=== PATIENT | female | born 1960 | race Caucasian/White ===

== ENCOUNTER 2016-11-28 09:51 | Emergency (ER) | payer OTHER ==
[2016-11-28 10:42] VITALS: BP 161/97
--- NOTE | 2016-11-28 12:05 | UC ---
Ear Complaint HPI - HPI Summary HPI Summary: R ear feels plugged, trouble hearing with pain behind ear and down R neck. Has some nasal congestion, and hx of having fluid in that ear before. Also concerned that she feels tender and swollen on entire side of R neck behind and below R ear for almost 3 weeks. Denies fever. - History of Current Complaint Chief Complaint: UCEar Stated Complaint: RIGHT EAR,SINUSES Time Seen by Provider: 11/28/16 11:48 Hx Obtained From: Patient Hx Last Menstrual Period: NOVASURE ?: No Onset/Duration: Gradual Onset, Lasting Weeks Severity Initially: Mild Severity Currently: Mild Aggravating Factors: Nothing Alleviating Factors: Nothing Associated Signs/Symptoms: Positive: Hearing Loss, URI Symptoms - Allergies/Home Medications Allergies/Adverse Reactions: Allergies Allergy/AdvReac Type Severity Reaction Status Date / Time Penicillins Allergy Intermediate rash, hives Verified 11/28/16 10:42 Pseudoephedrine Allergy Unknown Unknown Verified 11/28/16 10:42 [From Sudafed] Reaction Details bees Allergy Anxiety Uncoded 11/28/16 10:42 Home Medications: Home Medications Calcium Carbonate-Vitamin D [Calcium + D3 600-200 mg-Unit] 1 tab PO DAILY [History Confirmed 11/28/16] Loratadine & Pseudoephedrine [Alavert Allergy/Sinus 5-120 mg] 1 tab PO BID 11/28 [History Confirmed 11/28/16] PMH/Surg Hx/FS Hx/Imm Hx Endocrine History Of: Reports: Thyroid Disease Denies: Diabetes Cardiovascular History Of: Reports: Hypertension Denies: Cardiac Disorders Respiratory History Of: Denies: COPD, Asthma GI/ History Of: Denies: Ulcer - Surgical History Surgical History: Yes Surgery Procedure, Year, and Place: Craneotomy at ,Right eye tumor at ,Tubal ligation,Right ankle surgery with hardware, D&C and Novasure - Family History Known Family History: Positive: None - Social History Alcohol Use: None Substance Use Type: None Smoking Status (MU): Never Smoked Tobacco - Immunization History Most Recent Influenza Vaccination: 06/2015 Review of Systems Constitutional: Negative Skin: Negative Eyes: Negative ENT: Ear Ache, Nasal Discharge Respiratory: Negative Cardiovascular: Negative Gastrointestinal: Negative Genitourinary: Negative Motor: Negative Neurovascular: Negative Musculoskeletal: Negative Neurological: Negative Psychological: Negative All Other Systems Reviewed And Are Negative: Yes Physical Exam Triage Information Reviewed: Yes Appearance: Well-Appearing, No Pain Distress, Well-Nourished Vital Signs: Initial Vital Signs Temp 97.6 F 11/28/16 10:40 Pulse 58 11/28/16 10:40 Resp 16 11/28/16 10:40 BP 161/97 11/28/16 10:40 Pulse Ox 100 11/28/16 10:40 Vital Signs Reviewed: Yes Eye Exam: Normal Eyes: Positive: Conjunctiva Clear ENT: Positive: Pharynx normal, Nasal congestion, TMs normal. Negative: Nasal drainage, TM bulging, TM dull, TM red, Tonsillar swelling, Tonsillar exudate, Trismus Dental Exam: Other - edentulous Neck: Positive: No Lymphadenopathy - no palpable nodes or glands, though pt states they all feel tender and swollen to her, Tenderness @ - R neck Respiratory Exam: Normal Respiratory: Positive: Chest non-tender, Lungs clear, Normal breath sounds, No respiratory distress, No accessory muscle use Cardiovascular Exam: Normal Cardiovascular: Positive: RRR, No Murmur Musculoskeletal Exam: Normal Neurological Exam: Normal Psychological Exam: Normal Skin Exam: Normal Ear Complaint Course/Dx - Differential Dx/Diagnosis Provider Diagnoses: R eustachian tube dysfunction. R cervical lymphadenopathy Discharge - Discharge Plan Condition: Stable Disposition: HOME Prescriptions: Fluticasone NASAL SPRAY 50MCG* [Flonase NASAL SPRAY 50MCG*] 2 spray BOTH NARES DAILY #1 btl Patient Education Materials: Eustachian Tube Dysfunction (GEN), Lymphadenopathy (ED) Referrals: Merced Brown PA [Primary Care Provider] - Mj Munoz MD [Medical Doctor] - Additional Instructions: As we discussed, fluid in the ears can often take weeks to resolve. You can discuss your recurrent problems with an ear, nose, throat specialist to see if surgery is an option. Make sure you tell the law office receptionist that you would prefer to see someone in [place].
== END 2016-11-28 12:04 | disposition home or self-care (01) ==
LOC: UCCORT 09:51
DX: H69.91 Unspecified Eustachian tube disorder, right ear (principal); R09.81 Nasal congestion; R59.1 Generalized enlarged lymph nodes; H91.8X9 Other specified hearing loss, unspecified ear; E07.9 Disorder of thyroid, unspecified; Z88.2 Allergy status to sulfonamides; Z88.8 Allergy status to other drugs, medicaments and biological substances; Z91.030 Bee allergy status
CPT/HCPCS: 99212; G0463

== ENCOUNTER 2018-04-13 19:00 | Emergency (ER) | payer OTHER ==
[2018-04-13 19:57] VITALS: BP 150/91
[2018-04-13] MEDS ORDERED: Cephalexin CAP* 500 MG PO ONE ×2 (20:32→20:38)
--- NOTE | 2018-04-13 20:34 | UC ---
Skin Complaint HPI - HPI Summary HPI Summary: NOTICED AN AREA OF REDNESS RIGHT POSTERIOR THIGH THIS MORNING. OVER THE COURSE OF THE DAY IT HAS BECOME BIGGER, MORE PAINFUL AND ITCHY. NO DRAINAGE. NO FEVER , HEADACHE OR BODY ACHES. - History of Current Complaint Chief Complaint: UCSkin Time Seen by Provider: 04/13/18 20:25 Stated Complaint: SKIN COMPLAINT Hx Obtained From: Patient Hx Last Menstrual Period: NOVASURE Onset/Duration: Gradual Onset, Lasting Hours, Still Present Timing: Constant Onset Severity: Mild Current Severity: Moderate Pain Intensity: 10 - SITTING IN ROOM IN NAD Pain Scale Used: 0-10 Numeric Location: Discrete - POSTERIOR RIGHT THIGH Character: Pruritus, Pain, Redness, Raised Aggravating Factor(s): Touch Alleviating Factor(s): Nothing Associated Signs & Symptoms: Positive: Rash, Tenderness Related History: Insect Bite/Sting - Allergy/Home Medications Allergies/Adverse Reactions: Allergies Allergy/AdvReac Type Severity Reaction Status Date / Time bee venom protein (honey bee) Allergy Unknown Anxiety Verified 04/13/18 19:47 Penicillins Allergy Unknown rash,hives Verified 04/13/18 19:47 pseudoephedrine Allergy Unknown Unknown Verified 04/13/18 19:47 [From [facility]] Reaction Details Home Medications: Home Medications Bethanechol TAB* [Urecholine TAB*] 10 mg PO BID 04/13/18 [History Confirmed 12/27] Review of Systems Constitutional: Negative Skin: Rash Respiratory: Negative Cardiovascular: Negative Gastrointestinal: Negative All Other Systems Reviewed And Are Negative: Yes PMH/Surg Hx/FS Hx/Imm Hx Endocrine History: Hypothyroidism, Dyslipidemia Cardiovascular History: Hypertension - Surgical History Surgical History: Yes Surgery Procedure, Year, and Place: Craneotomy at ,Right eye tumor at ,Tubal ligation,Right ankle surgery with hardware, D&C and Novasure. hysterectomy - Family History Known Family History: Positive: Hypertension - Social History Alcohol Use: None Substance Use Type: None Smoking Status (MU): Never Smoked Tobacco - Immunization History Most Recent Influenza Vaccination: 06/2015 Physical Exam Triage Information Reviewed: Yes Appearance: Well-Appearing, No Pain Distress, Well-Nourished Vital Signs: Initial Vital Signs Temp 97.9 F 04/13/18 19:49 Pulse 55 04/13/18 19:49 Resp 18 04/13/18 19:49 BP 150/91 04/13/18 19:49 Pulse Ox 100 04/13/18 19:49 Vital Signs Reviewed: Yes Eyes: Positive: Conjunctiva Clear ENT: Positive: Hearing grossly normal Neck: Positive: Supple Respiratory: Positive: No respiratory distress, No accessory muscle use Cardiovascular: Positive: Pulses Normal Abdomen Description: Positive: Soft Musculoskeletal: Positive: No Edema Neurological: Positive: Alert Psychological: Positive: Age Appropriate Behavior Skin: Positive: Other - 15CM X 12 CM AREA OF SOFT TISSUE SWELLING AND ERYTHEMA POSTERIOR RIGHT THIGH. WARM TO TOUCH AND TTP. NO FLUCTUANCE OR DRAINAGE Course/Dx - Diagnoses Provider Diagnoses: CELLULITIS RIGHT POSTERIOR THIGH Discharge - Sign-Out/Discharge Documenting (check all that apply): Discharge/Admit/Transfer - Discharge Plan Condition: Stable Disposition: HOME Prescriptions: Cephalexin CAP* [Keflex 500 CAP*] 1,000 mg PO BID #26 cap Loratadine 10 mg PO DAILY #30 tablet Triamcinolone 0.1% CREAM(NF) [Kenalog Cream 0.1%(NF)] 1 applic TOPICAL TID PRN # 1 tube PRN Reason: Itching Patient Education Materials: Cellulitis (ED) Referrals: Merced Brown PA [Primary Care Provider] - If Needed Additional Instructions: TAKE THE ANTIBIOTICS FOR THE FULL 7 DAYS TO COVER FOR INFECTION. THERE MAY BE AN ALLERGIC COMPONENT TO YOUR REACTION WELL. TAKE 10 MG OF LORATADINE DAILY IN THE MORNING. COOL COMPRESSES MAY HELP WITH THE ITCHING. TRIAMCINOLONE TOPICALLY MAY ALSO HELP WITH THE ITCH. SEEK FOLLOW-UP IF YOU'RE NOT IMPROVING EXPECTED OVER THE NEXT FEW DAYS. - Billing Disposition and Condition Condition: STABLE Disposition: Home
== END 2018-04-13 20:51 | disposition home or self-care (01) ==
LOC: UCCORT 19:00
DX: L03.115 Cellulitis of right lower limb (principal); Z88.0 Allergy status to penicillin; Z88.8 Allergy status to other drugs, medicaments and biological substances; I10 Essential (primary) hypertension
CPT/HCPCS: 99212; A9270-GY; G0463

== ENCOUNTER 2018-12-07 19:00 | Emergency (ER) | payer OTHER ==
[2018-12-07 21:06] VITALS: BP 159/104
[2018-12-07] MEDS ORDERED: Cephalexin CAP* 500 MG PO ONE (21:29)
[2018-12-07] MEDS ORDERED: predniSONE TAB* 20 MG PO ONE (21:30)
--- NOTE | 2018-12-07 21:30 | UC ---
UC General HPI - HPI Summary HPI Summary: awoke with rash on R arm. describes it as itchy and painful. applied a topical steroid cream with no relief. no fever or sob. uncertain if it is a bite or infection. - History of Current Complaint Chief Complaint: UCRash Stated Complaint: RIGHT ARM SKIN COMPLAINT Time Seen by Provider: 12/07/18 21:24 Hx Obtained From: Patient Hx Last Menstrual Period: NOVASURE Timing: Constant Pain Intensity: 8 Associated Signs & Symptoms: Negative: Fever - Allergy/Home Medications Allergies/Adverse Reactions: Allergies Allergy/AdvReac Type Severity Reaction Status Date / Time bee venom protein (honey bee) Allergy Unknown Anxiety Verified 12/07/18 20:59 Penicillins Allergy Unknown rash,hives Verified 12/07/18 20:59 pseudoephedrine Allergy Unknown Unknown Verified 12/07/18 20:59 [From [facility]] Reaction Details Home Medications: Home Medications Atenolol TAB* [Tenormin TAB* 50 MG] 100 mg PO DAILY 12/07/18 [History Confirmed 12/07/18] Betamethasone Dip 0.05% ON(NF) [Betamethasone Dipr 0.05% OINT(NF)] 1 applic .SEE ORDER ONCE PRN 12/07/18 [History Confirmed 12/07/18] Epi-Pen 1 dose IM SEE INSTRUCTIONS PRN 12/07/18 [History Confirmed 12/07/18] Folic Acid TAB* [Folvite TAB*] 1 mg PO DAILY 12/07/18 [History Confirmed ] PMH/Surg Hx/FS Hx/Imm Hx Endocrine History: Dyslipidemia Cardiovascular History: Hypertension - Surgical History Surgical History: Yes Surgery Procedure, Year, and Place: Craneotomy at ,Right eye tumor at ,Tubal ligation,Right ankle surgery with hardware, D&C and Novasure. hysterectomy - Family History Known Family History: Positive: Hypertension - Social History Alcohol Use: None Substance Use Type: None Smoking Status (MU): Never Smoked Tobacco - Immunization History Most Recent Influenza Vaccination: 06/2015 Review of Systems All Other Systems Reviewed And Are Negative: Yes Constitutional: Positive: Negative Skin: Positive: Rash Eyes: Positive: Negative ENT: Positive: Negative Respiratory: Positive: Negative Cardiovascular: Positive: Negative Gastrointestinal: Positive: Negative Genitourinary: Positive: Negative Motor: Positive: Negative Neurovascular: Positive: Negative Musculoskeletal: Positive: Negative Neurological: Positive: Negative Psychological: Positive: Negative Physical Exam Triage Information Reviewed: Yes Appearance: Well-Appearing Vital Signs: Initial Vital Signs Temp 98.4 F 12/07/18 20:59 Pulse 59 12/07/18 20:59 Resp 20 12/07/18 20:59 BP 159/104 12/07/18 20:59 Pulse Ox 100 12/07/18 20:59 Vital Signs Reviewed: Yes Eyes: Positive: Conjunctiva Clear ENT: Positive: Normal ENT inspection Neck: Positive: Supple, Nontender, No Lymphadenopathy Respiratory: Positive: Lungs clear, Normal breath sounds Cardiovascular: Positive: RRR Abdomen Description: Positive: Nontender Bowel Sounds: Positive: Present Musculoskeletal: Positive: ROM Intact Neurological: Positive: Alert Psychological: Positive: Age Appropriate Behavior Skin Exam: Normal, Other - 2 slightly raised red spots on R Forearm that are warm and tender to touch. no streaking and not fluctuant. about 2-3" in size. no overt bite or sting yepez. Course/Dx - Differential Dx - Multi-Symptom Differential Diagnoses: Other - cellulitis vs urticaria vs bite/sting. will tx with antibiotic, steroid and close f/u for recheck. - Diagnoses Provider Diagnosis: Rash Discharge - Sign-Out/Discharge Documenting (check all that apply): Patient Departure All imaging exams completed and their final reports reviewed: No Studies - Discharge Plan Condition: Stable Disposition: HOME Prescriptions: Cephalexin CAP* [Keflex CAP*] 500 mg PO TID 10 Days #30 cap predniSONE [Prednisone 20 MG TAB] 40 mg PO DAILY 2 Days #4 tablet Patient Education Materials: Urticaria (ED), Cellulitis (DC) Referrals: Merced Brown PA [Primary Care Provider] - 2 Days - Billing Disposition and Condition Condition: STABLE Disposition: Home - Attestation Statements Provider Attestation: Per institutional requirements, I have reviewed the chart, however, I was not consulted specifically or made aware of this patient by the midlevel provider. I did not personally evaluate, interact with , or disposition this patient.
== END 2018-12-07 21:39 | disposition home or self-care (01) ==
LOC: UCCORT 19:00
DX: R21 Rash and other nonspecific skin eruption (principal); I10 Essential (primary) hypertension; Z91.030 Bee allergy status; Z88.0 Allergy status to penicillin; Z88.8 Allergy status to other drugs, medicaments and biological substances
CPT/HCPCS: 99212; A9270-GY; G0463; J7512

== ENCOUNTER 2019-04-13 20:11 | Emergency (ER) | payer OTHER ==
[2019-04-13 20:26] VITALS: BP 139/88
--- NOTE | 2019-04-13 20:51 | UC ---
UC General HPI - HPI Summary HPI Summary: 1. SINUS PAIN, PRESSURE AND CONGESTION X 2 WEEKS. TAKING OTC MEDICATION WITH NO RELIEF. HX SINUSITIS AND THIS IS THE SAME. 2. FOR THE PAST 2 WEEKS, PT DESCRIBES EPISODES OF "FOOD GETS CAUGHT SOMETIMES WHEN I EAT". "I FEEL THE LUMP THEN VOMIT THEN EVERYTHING IS OK AFTER". DENIES HAVING ANY CURRENT S/S'S. ABLE TO SWALLOW SALIVA WITH NO DIFFICULTY. 3. C/O A SCIATICA FLARE ON R. DESCRIBES PAIN IN R BUTT INTO R THIGH. SOME RELIEF WITH ICY HOT. TAKE MOTRIN ON OCCASION. HAS SEEN PT FOR SAME IN PAST. NO BACK OR ABDOMINAL PAIN. NO FEVER. NO BOWEL/BLADDER DYSFUNCTION AND NO SADDLE ANESTHESIA. - History of Current Complaint Chief Complaint: UCGeneralIllness Stated Complaint: SINUS Time Seen by Provider: 04/13/19 20:38 Hx Obtained From: Patient Hx Last Menstrual Period: NOVASURE Pain Intensity: 8 Associated Signs & Symptoms: Negative: Abdominal Pain, Chest Pain, Fever, SOB - Allergy/Home Medications Allergies/Adverse Reactions: Allergies Allergy/AdvReac Type Severity Reaction Status Date / Time bee venom protein (honey bee) Allergy Unknown Anxiety Verified 04/13/19 20:20 Penicillins Allergy Unknown rash,hives Verified 04/13/19 20:20 pseudoephedrine Allergy Unknown Unknown Verified 04/13/19 20:20 [facility] Reaction Details PMH/Surg Hx/FS Hx/Imm Hx Endocrine History: Thyroid Disease, Dyslipidemia Cardiovascular History: Hypertension - Surgical History Surgical History: Yes Surgery Procedure, Year, and Place: Craneotomy at ,Right eye tumor at ,Tubal ligation,Right ankle surgery with hardware, D&C and Novasure. hysterectomy - Family History Known Family History: Positive: Hypertension - Social History Alcohol Use: None Substance Use Type: None Smoking Status (MU): Never Smoked Tobacco - Immunization History Most Recent Influenza Vaccination: 06/2015 Review of Systems All Other Systems Reviewed And Are Negative: Yes Constitutional: Negative: Fever, Chills Skin: Negative: Rash ENT: Positive: Nasal Discharge, Sinus Congestion, Sinus Pain/Tenderness. Negative: Sore Throat, Ear Ache Respiratory: Negative: Shortness Of Breath, Cough Cardiovascular: Negative: Palpitations, Chest Pain Gastrointestinal: Positive: Vomiting. Negative: Abdominal Pain, Diarrhea Musculoskeletal: Negative: Decreased ROM Neurological: Negative: Weakness Physical Exam Triage Information Reviewed: Yes Appearance: Well-Appearing Vital Signs: Initial Vital Signs Temp 97.1 F 04/13/19 20:21 Pulse 72 04/13/19 20:21 Resp 16 04/13/19 20:21 BP 139/88 04/13/19 20:21 Pulse Ox 100 04/13/19 20:21 Vital Signs Reviewed: Yes Eyes: Positive: Conjunctiva Clear ENT: Positive: Pharynx normal, Nasal congestion, TMs normal, Sinus tenderness, Other - SPEECH IS FLUENT AND PT SWALLOWING HER SALIVA WITH NO DIFFICULTY. NO STRIDOR.. Negative: Nasal drainage Neck: Positive: Supple, Nontender, No Lymphadenopathy Respiratory: Positive: Lungs clear, Normal breath sounds, No respiratory distress Cardiovascular: Positive: RRR, No Murmur Abdomen Description: Positive: Nontender, No Organomegaly, Soft. Negative: Distended, Guarding, Hernia @, Pulsatile Mass Bowel Sounds: Positive: Present Musculoskeletal: Positive: Other: - BACK: NO DEFORMITY OR TENDERNESS. TENDER IN R SCIATIC NOTCH. NO SADDLE ANESTHESIA. S/V/M INTACTX4. Neurological: Positive: Alert Psychological: Positive: Age Appropriate Behavior Skin Exam: Normal Skin: Negative: Rashes Course/Dx - Differential Dx - Multi-Symptom Differential Diagnoses: Other - 1. WILL TX SINUSITIS WITH ANTIBIOTIC. 2. WILL TX SCIATICA WITH pt 3. DYSPAGIA: WILL TX SOFT DIET/LIQUID DIET, AVOID NSAIDS FOR NOW, F/U PCP NEXT WEEK SCHEDULED AND GO TO ER FOR ANY RECURRENT BOUTS OF FOOD BEING CAUGHT. - Diagnoses Provider Diagnosis: Sinusitis, Esophageal dysphagia, Sciatica Discharge - Sign-Out/Discharge Documenting (check all that apply): Patient Departure All imaging exams completed and their final reports reviewed: No Studies - Discharge Plan Condition: Stable Disposition: HOME Prescriptions: DOXYcycline CAP(*) [DOXYcycline 100MG CAP(*)] 100 mg PO BID 7 Days #14 cap Patient Education Materials: Sinusitis (ED), Sciatica (ED), Dysphagia (ED) Referrals: Merced Brown PA [Primary Care Provider] - Additional Instructions: 1. EAT A SOFT FOOD OR LIQUID DIET. AVOID MEATS AND LARGE PIECES OF FOOD. IF THE FOOD GETS STUCK, GO TO THE ER IMMEDIATELY. AVOID MOTRIN UNTIL YOUR STOMACH ISSUE IS RESOLVED. 2. FOLLOW UP WITH PT FOR THE SCIATICA. 3. AVOID THE SUN WHILE TAKING DOXYCYCLINE. 4. FOLLOW UP WITH YOUR PRIMARY CARE NEXT WEEK SCHEDULED. - Billing Disposition and Condition Condition: STABLE Disposition: Home
[2019-04-13] MEDS ORDERED: DOXYcycline CAP(*) 100 MG PO ONE ×2 (20:59→21:08)
== END 2019-04-13 21:17 | disposition home or self-care (01) ==
LOC: UCCORT 20:11
DX: J32.9 Chronic sinusitis, unspecified (principal); R13.10 Dysphagia, unspecified; M54.30 Sciatica, unspecified side; I10 Essential (primary) hypertension
CPT/HCPCS: 99213; A9270-GY; G0463

== ENCOUNTER 2019-04-29 17:50 | Emergency (ER) | payer OTHER ==
[2019-04-29 18:19] VITALS: BP 129/89
--- NOTE | 2019-04-29 19:02 | UC ---
Eye Complaint HPI - History of Current Complaint Chief Complaint: UCGU Stated Complaint: URINARY Time Seen by Provider: 04/29/19 18:25 Hx Last Menstrual Period: NOVASURE Pain Intensity: 6 - Allergies/Home Medications Allergies/Adverse Reactions: Allergies Allergy/AdvReac Type Severity Reaction Status Date / Time bee venom protein (honey bee) Allergy Unknown Anxiety Verified 04/29/19 18:19 Penicillins Allergy Unknown rash,hives Verified 04/29/19 18:19 pseudoephedrine Allergy Unknown Unknown Verified 04/29/19 18:19 [From Sudafed] Reaction Details Home Medications: Home Medications Bethanechol TAB* [Urecholine TAB*] 10 mg PO BID 04/29/19 [History Confirmed ] Calcium Carbonate/Vitamin D3 [Calcium 1,000 + D3 Caplet] 1 each PO DAILY [History Confirmed 04/29/19] PMH/Surg Hx/FS Hx/Imm Hx - Surgical History Surgical History: Yes Surgery Procedure, Year, and Place: Craneotomy at ,Right eye tumor at ,Tubal ligation,Right ankle surgery with hardware, D&C and Novasure. hysterectomy - Family History Known Family History: Positive: Hypertension - Social History Alcohol Use: None Substance Use Type: None Smoking Status (MU): Never Smoked Tobacco - Immunization History Most Recent Influenza Vaccination: 06/2015 Physical Exam Vital Signs: Initial Vital Signs Temp 97.6 F 04/29/19 18:17 Pulse 99 04/29/19 18:17 Resp 16 04/29/19 18:17 BP 129/89 04/29/19 18:17 Pulse Ox 98 04/29/19 18:17 Discharge - Discharge Plan Referrals: Merced Brown PA [Primary Care Provider] -
--- NOTE | 2019-04-29 19:26 | UC ---
Complaint Female HPI - HPI Summary HPI Summary: Pt presents with c/o urinary symptoms of urgency, frequency, and dysuria X 2 days. Pt aso c/o low back and pelvis discomfort and brown/yellow discharge - History Of Current Complaint Chief Complaint: UCGU Stated Complaint: URINARY Time Seen by Provider: 04/29/19 18:25 Hx Obtained From: Patient Hx Last Menstrual Period: NOVASURE ?: No Onset/Duration: Sudden Onset, Lasting Days, Still Present Timing: Constant Severity Initially: Mild Severity Currently: Moderate Pain Intensity: 6 Character: Dull, Burning Aggravating Factor(s): Urination Alleviating Factor(s): Nothing Associated Signs And Symptoms: Positive: Vaginal Discharge - Risk Factors Ectopic Risk Factor: Negative Ovarian Torsion Risk Factor: Negative - Allergies/Home Medications Allergies/Adverse Reactions: Allergies Allergy/AdvReac Type Severity Reaction Status Date / Time bee venom protein (honey bee) Allergy Unknown Anxiety Verified 04/29/19 18:19 Penicillins Allergy Unknown rash,hives Verified 04/29/19 18:19 pseudoephedrine Allergy Unknown Unknown Verified 04/29/19 18:19 [From Sudafed] Reaction Details Home Medications: Home Medications Bethanechol TAB* [Urecholine TAB*] 10 mg PO BID 04/29/19 [History Confirmed ] Calcium Carbonate/Vitamin D3 [Calcium 1,000 + D3 Caplet] 1 each PO DAILY [History Confirmed 04/29/19] PMH/Surg Hx/FS Hx/Imm Hx Previously Healthy: Yes Cardiovascular History: Cardiac Disease, Hypertension - Surgical History Surgical History: Yes Surgery Procedure, Year, and Place: Craneotomy at ,Right eye tumor at ,Tubal ligation,Right ankle surgery with hardware, D&C and Novasure. hysterectomy - Family History Known Family History: Positive: Hypertension - Social History Occupation: Disabled Lives: With Family Alcohol Use: None Substance Use Type: None Smoking Status (MU): Never Smoked Tobacco Have You Smoked in the Last Year: No - Immunization History Most Recent Influenza Vaccination: 06/2015 Review of Systems All Other Systems Reviewed And Are Negative: Yes Constitutional: Positive: Negative Skin: Positive: Negative Eyes: Positive: Negative ENT: Positive: Negative Respiratory: Positive: Negative Cardiovascular: Positive: Negative Gastrointestinal: Positive: Abdominal Pain, Diarrhea - had one episode at clinic Genitourinary: Positive: Dysuria, Frequency, Urgency Motor: Positive: Negative Neurovascular: Positive: Negative Musculoskeletal: Positive: Negative Neurological: Positive: Negative Psychological: Positive: Negative Is Patient Immunocompromised?: No Physical Exam Triage Information Reviewed: Yes Appearance: Well-Appearing Vital Signs: Initial Vital Signs Temp 97.6 F 04/29/19 18:17 Pulse 99 04/29/19 18:17 Resp 16 04/29/19 18:17 BP 129/89 04/29/19 18:17 Pulse Ox 98 04/29/19 18:17 Vital Signs Reviewed: Yes Eye Exam: Normal ENT Exam: Normal Dental Exam: Normal Neck exam: Normal Respiratory Exam: Normal Respiratory: Positive: Normal breath sounds Cardiovascular Exam: Normal Abdomen Description: Positive: Nontender Musculoskeletal Exam: Normal Neurological Exam: Normal Psychological Exam: Normal Skin Exam: Normal Complaint Female Dx - Course Course Of Treatment: Pt was unable to provide urine sample. I also discussed with her that I was treating her based on her symptoms of frequency, urgency and dysuria. I discussed with her the need to follow up immediately with her PCP and brick cleaner provider as soon as possible. - Differential Dx/Diagnosis Differential Diagnosis/HQI/PQRI: Urinary Tract Infection Provider Diagnosis: Dysuria Discharge - Sign-Out/Discharge Documenting (check all that apply): Patient Departure All imaging exams completed and their final reports reviewed: No Studies - Discharge Plan Condition: Stable Disposition: HOME Prescriptions: Nitrofurantoin Monohyd/M-Cryst [Macrobid 100 mg Capsule] 100 mg PO Q12H #10 cap Patient Education Materials: Dysuria (ED) Referrals: Gus Giraldo MD [Medical Doctor] - As Soon As Possible Merced Brown PA [Primary Care Provider] - As Soon As Possible Additional Instructions: Please follow up with your PCP and [facility]VE REPAIRER providers as soon as possible. - Billing Disposition and Condition Condition: STABLE Disposition: Home
== END 2019-04-29 19:35 | disposition home or self-care (01) ==
LOC: UCCORT 17:50
DX: R30.0 Dysuria (principal); Z88.0 Allergy status to penicillin; I11.9 Hypertensive heart disease without heart failure
CPT/HCPCS: 99212; G0463

== ENCOUNTER 2019-05-05 08:41 | Emergency (ER) | payer OTHER ==
--- OUTSIDE RECORDS SUMMARY | 2019-05-05 08:55 | XMS REPORT | Continuity of Care Document ---
:1960 External Reference #:[id number] Author Name Oneal Zhang Care Team Providers Name Role Phone Merced Brown RPA Primary Care Physician Unavailable Payers Date Identification Numbers Payment Provider Subscriber Effective: 2008 Policy Number: [id number] Salty Mcfadden Group Number: [id number] Group Name: [place] [address] PayID: [id number] Problems Active Problems Provider Date Hypothyroidism Merced Milano, PA Onset: 01/06/2019 Hyperlipidemia Merced Milano, PA Onset: 01/06/2019 Essential hypertension Merced Milano, PA Onset: 01/06/2019 Degenerative joint disease involving multiple Merced Milano, PA Onset: joints Trochanteric bursitis Merced Milano, PA Onset: 01/09/2019 Note: chronic (R) side Intermittent asthma Merced Milano, PA Onset: 01/09/2019 Dermatitis factitia Merced Milano, PA Onset: 01/09/2019 Allergic rhinitis Merced Milano, PA Onset: 01/09/2019 Bladder muscle dysfunction - overactive Merced Milano, PA Onset: 2018 Chronic recurrent sinusitis Merced Milano, PA Onset: 03/11/2019 Dysfunction of eustachian tube Merced Milano, PA Onset: 03/11/2019 Note: chronic, right Family History Date Family Member(s) Observation Comments Father Heart Disease,High Cholesterol,Hypertension Mother due to Heart condition Social History Type Date Description Comments Sex Unknown Lives With Male Partner Marcus Diet Patient is on a cholesterol diet Occupation Disabled ETOH Use Denies alcohol use Tobacco Use Start: Unknown Patient has never smoked Smoking Status Reviewed: 05/03/19 Patient has never smoked Allergies, Adverse Reactions, Alerts Description No Known Drug Allergies Medications Active Medications SIG Qnty Indications Ordering Date Provider Trospium Chloride 1 tab by mouth 30tabs Mj 05/03/2019 20mg every day as Elizabeth, Tablets needed Methylprednisolone take as directed 21units M70.61 Mj 05/03/2019 4mg TBPK MD Glenn Nitrofurantoin Monohyd 1 tab by mouth 10caps Unknown 04/29/2019 Macro twice a day 100mg Capsules Flector 1 patch to 5units Mj 04/19/2019 1.3% Patches affected site Elizabeth, every 12 hours prn pain Folic Acid 1 by mouth every 01/26/2019 1mg Tablets day MD Glenn Ventolin HFA 1-2 inhalations 18gm 01/26/2019 108(90Base) every 4 hour as Elizabeth, mcg/Act Aerosol needed wheeze, cough Atenolol 2 tabs by mouth 60tabs 01/26/2019 50mg Tablets every day MD Glenn Calcium 600+D 1 tab by mouth 180tabs 01/26/2019 [id number] twice a day Elizabeth, Tablets Alavert Allergy/Sinus 1 every 12 hours 24tabs 01/24/2019 5-120mg as needed Elizabeth, Tablets ER 12HR Levothyroxine Sodium ! tab by mouth 90tabs E03.9 01/24/2019 50mcg every day Elizabeth, Tablets MD Stiles Or equivalent, 50ml J32.9 01/24/2019 0.65% Solution for rinsing nares Elizabeth, prn Ipratropium [place] Two Sprays 30units J32.9 01/24/2019 0.03% In Each Nostril Elizabeth, Solution Every 12 Hours Imodium A-D 1-2 tabs by mouth 30caps 01/21/2019 2mg Capsules four times a day Elizabeth, as needed loose stool Spironolactone 1 by mouth every 90tabs Mj 01/17/2019 25mg Tablets day MD Glenn Atorvastatin Calcium 1 tab by mouth 90tabs Mj 40mg every day Glenn, Tablets Bethanechol Chloride take 1 tablets by Gus Giraldo, 10mg mouth bid Tablets History Medications Prednisone 2 tabs by mouth 10tabs Mj Elizabeth 04/22/2019 - 20mg every day For 5 MD 05/03/2019 Tablets Days For Acute Back Pain QC Lidocaine Pain 1 patch to 10units Mj Elizabeth 04/22/2019 - Relief affected area 05/03/2019 4% Patches every 12 hours as needed for back pain Calcium 500 +D 1 by mouth 180tabs Mj Elizabeth 01/24/2019 - twice a day 01/26/2019 [id number] Tablets Prednisone 1 by mouth 5tabs J32.9 Mj Elizabeth 01/24/2019 - 20mg every day 01/30/2019 Tablets Spironolactone/[place] 1 po qd 30tabs Unknown - chlorothiazide 01/17/2019 25-25mg Tablets Trospium Chloride po bid 60tabs Unknown - 05/03/2019 20mg Tablets Atenolol 1 po qd 90tabs Unknown - 100mg 01/26/2019 Tablets Levothyroxine Sodium 1 tab by mouth 90tabs Mj Elizabeth - Mon - Fri 04/22/2019 75mcg Tablets Vitamin D 1 po qd 30caps Unknown - 100Units 01/26/2019 Capsules Levetiracetam 1 po bid 60tabs Unknown - 500mg 01/03/2019 Tablets Vital Signs Date Vital Result Comment 05/03/2019 11:19am Height 64 inches 5'4" Weight 137.12 lb Heart Rate 62 /min BP Systolic Sitting 134 mmHg BP Diastolic Sitting 78 mmHg O2 % BldC Oximetry 98 % BMI (Body Mass Index) 23.5 kg/m2 01/24/2019 9:08am Height 64 inches 5'4" Weight 131.00 lb Heart Rate 62 /min BP Systolic Sitting 134 mmHg BP Diastolic Sitting 78 mmHg O2 % BldC Oximetry 98 % BMI (Body Mass Index) 22.5 kg/m2 07/20/2013 12:52pm Height 64 inches 5'4" Results Test Date Facility Test Result H/L Range Note Laboratory test 04/22/2019 [facility] TSH 0.02 mcIU/mL Low 0.34-5.[address] ([place] [address] Stim Horm) [phone] Free T4 (Free Thyroxine) 1.18 ng/dL High 0.61-1.12 Procedures Date Code Description Status 03/02/2019 [id number] Mammogram Completed 02/16/2018 [id number] Mammogram Completed Encounters Type Date Location Provider Dx Diagnosis Office Visit 01/24/2019 [facility] Merced Brown, J32.9 Chronic sinusitis, 10:00a NIRAJ unspecified I10 Essential (primary) hypertension E03.9 Hypothyroidism, unspecified Office Visit 07/20/2013 1:00p Orthopedic Antonina Cabrera, 719.41 [facility] AT [place] 715.11 Osteoarthrosis Localized Prim Shoulder Region 726.10 Bursae & Tendon Disorders Shoulder Region Unspec Plan of Treatment Future Appointment(s):08/03/2019 9:30 am - NIRAJ Zafar at [facility]05/03/2019 - Merced Brown PAM70.61 Trochanteric bursitis, right hipNew Medication:Methylprednisolone 4 mg - take as directedComments:Chronic issue, but now may involve the iliotibial bandHas PT gxbuyV13.31 Right lower quadrant painNew Labs:Urinalysis Profile, Ordered: 05/03/19Urine Culture And Sensitivities, Ordered: 05/03/19Comments:Likely due to diarrhea but need urine dbrrwrJ02.7 Diarrhea, unspecifiedComments:BRAT dietR30.0 DysuriaComments:Need a urine sample, order given
[2019-05-05 08:58] VITALS: BP 119/96
--- NOTE | 2019-05-05 09:25 | UC ---
Lower Extremity/Ankle HPI - HPI Summary HPI Summary: 59 year old female with right ankle complaint. Had previous ORIF in the ankle years ago and felt more discomfort for the past 3 days. No trauma. No falls. No weakness. Pain is better with rest and worsened if pushing on the scar where the surgery took place . - History of Current Complaint Chief Complaint: UCLowerExtremity Stated Complaint: RIGHT ANKLE CONCERN Time Seen by Provider: 05/05/19 09:06 Hx Obtained From: Patient Hx Last Menstrual Period: NOVASURE Onset/Duration: Gradual Onset Severity Initially: Moderate Severity Currently: Moderate Pain Intensity: 8 Aggravating Factor(s): Standing, Ambulation Alleviating Factor(s): Rest, Elevation Able to Bear Weight: Yes - Allergies/Home Medications Allergies/Adverse Reactions: Allergies Allergy/AdvReac Type Severity Reaction Status Date / Time bee venom protein (honey bee) Allergy Unknown Anxiety Verified 05/05/19 08:59 Penicillins Allergy Unknown rash,hives Verified 05/05/19 08:59 pseudoephedrine Allergy Unknown Unknown Verified 05/05/19 08:59 [facility] Reaction Details Home Medications: Home Medications Albuterol HFA INHALER* [Ventolin HFA Inhaler*] 1 puff INH Q4H PRN 05/05/19 [ History Confirmed 05/05/19] Atorvastatin* [Lipitor 40 MG*] 1 tab PO DAILY 05/05/19 [History Confirmed ] Calcium Carb/Vitamin D3/Vit K1 [Calcium + D Soft Chewable Tab] 1 tab PO DAILY [History Confirmed 05/05/19] Folic Acid 1 tab PO DAILY 05/05/19 [History Confirmed 05/05/19] Spironolactone TAB* [Aldactone TAB 25 MG*] 1 tab PO DAILY 05/05/19 [History Confirmed 05/05/19] Trospium (NF) [Sanctura (NF)] 1 tab PO DAILY PRN 05/05/19 [History Confirmed ] methylPREDNISolone [Medrol] 5 tab PO ONCE 05/05/19 [History Confirmed 05/05/19] PMH/Surg Hx/FS Hx/Imm Hx Previously Healthy: Yes Endocrine History: Thyroid Disease, Dyslipidemia Cardiovascular History: Hypertension - Surgical History Surgical History: Yes Surgery Procedure, Year, and Place: Craneotomy at ,Right eye tumor at ,Tubal ligation,Right ankle surgery with hardware, D&C and Novasure. hysterectomy - Family History Known Family History: Positive: Hypertension - Social History Alcohol Use: None Substance Use Type: None Smoking Status (MU): Never Smoked Tobacco Have You Smoked in the Last Year: No - Immunization History Most Recent Influenza Vaccination: 06/2015 Review of Systems All Other Systems Reviewed And Are Negative: Yes Musculoskeletal: Positive: Arthralgia, Decreased ROM Is Patient Immunocompromised?: No Physical Exam Triage Information Reviewed: Yes Appearance: Well-Appearing, No Pain Distress, Well-Nourished Vital Signs: Initial Vital Signs Temp 97.9 F 05/05/19 08:54 Pulse 76 05/05/19 08:54 Resp 16 05/05/19 08:54 BP 119/96 05/05/19 08:54 Pulse Ox 100 05/05/19 08:54 Vital Signs Reviewed: Yes Eye Exam: Normal ENT Exam: Normal Respiratory Exam: Normal Cardiovascular Exam: Normal Musculoskeletal Exam: Normal Neurological Exam: Normal Psychological Exam: Normal Skin Exam: Normal Images Feet (Multiple View): 1 - medial lammeolus tenderness to palpation. 2 - well healed scar and in most prominent tenderness to palpation but no break in skin, no erythema, no bruising or swelling. sensation intact with brisk peripheral pulses Lower Extremity Course/Dx - Course Course Of Treatment: Xray shows no acute concerns. Refer back to Ortho for follow up . SHELBIE applied. Go to ED if Sx worsened - Differential Dx/Diagnosis Differential Diagnosis/HQI/PQRI: Contusion, Fracture (Closed), Sprain, Strain Provider Diagnosis: Right ankle pain Discharge - Sign-Out/Discharge Documenting (check all that apply): Patient Departure All imaging exams completed and their final reports reviewed: Yes - Discharge Plan Condition: Good Disposition: HOME Patient Education Materials: Arthralgia (ED) Referrals: Pietro Velarde MD [Medical Doctor] - If Needed (Ortho referral ) Merced Brown PA [Primary Care Provider] - Additional Instructions: Your xray did not reveal any cocnerns . please follow up with Orthopedics - Billing Disposition and Condition Condition: GOOD Disposition: Home
== END 2019-05-05 10:08 | disposition home or self-care (01) ==
LOC: UCCORT 08:41
DX: M25.571 Pain in right ankle and joints of right foot (principal); E07.9 Disorder of thyroid, unspecified; E78.5 Hyperlipidemia, unspecified; I10 Essential (primary) hypertension; Z88.0 Allergy status to penicillin
CPT/HCPCS: 99213; G0463

== ENCOUNTER 2019-05-14 09:35 | Emergency (ER) | payer OTHER ==
[2019-05-14 09:58] VITALS: BP 115/79
--- NOTE | 2019-05-14 10:15 | UC ---
Skin Complaint HPI - HPI Summary HPI Summary: 59-year-old female presents with one-week history of red itchy rash to her left forearm for the past week. States she has been using [id number] topical anti-itch gel without relief. States itching is worse at night. Denies swelling of lips, tongue, throat, difficulty breathing, changes in diet, detergents, soaps, lotions, cosmetics, or known contact with environmental irritants. - History of Current Complaint Chief Complaint: UCRash Time Seen by Provider: 05/14/19 09:53 Stated Complaint: SKIN COMPLAINT Hx Obtained From: Patient Hx Last Menstrual Period: NOVASURE Pain Intensity: 0 - Allergy/Home Medications Allergies/Adverse Reactions: Allergies Allergy/AdvReac Type Severity Reaction Status Date / Time bee venom protein (honey bee) Allergy Unknown Anxiety Verified 05/05/19 08:59 Penicillins Allergy Unknown rash,hives Verified 05/05/19 08:59 pseudoephedrine Allergy Unknown Unknown Verified 05/05/19 08:59 [From Sudafed] Reaction Details diphenhydramine AdvReac Tachycardia Verified 05/14/19 09:58 [From Benadryl Allergy] PMH/Surg Hx/FS Hx/Imm Hx Endocrine History: Dyslipidemia Cardiovascular History: Hypertension Respiratory History: Asthma - Surgical History Surgical History: Yes Surgery Procedure, Year, and Place: Craneotomy at ,Right eye tumor at ,Tubal ligation,Right ankle surgery with hardware, D&C and Novasure. hysterectomy - Family History Known Family History: Positive: Hypertension - Social History Occupation: Disabled Lives: With Family Alcohol Use: None Substance Use Type: None Smoking Status (MU): Never Smoked Tobacco Have You Smoked in the Last Year: No - Immunization History Most Recent Influenza Vaccination: 06/2015 Review of Systems All Other Systems Reviewed And Are Negative: Yes Constitutional: Negative: Fever, Chills Skin: Positive: Rash Respiratory: Positive: Negative Cardiovascular: Positive: Negative Gastrointestinal: Positive: Negative Genitourinary: Positive: Negative Musculoskeletal: Positive: Negative Neurological: Positive: Negative Is Patient Immunocompromised?: No Physical Exam - Summary Physical Exam Summary: GENERAL APPEARANCE: Well developed, well nourished, alert and cooperative, and appears to be in no acute distress. MOUTH/THROAT: no swelling of lips or tongue. Pharynx normal No tonsilar inflammation, swelling, exudate, or lesions. Uvula midline. Airway patent. NECK: Neck supple, non-tender without lymphadenopathy. CARDIAC: Normal S1 and S2. No S3, S4 or murmurs. Rhythm is regular. There is no peripheral edema, cyanosis or pallor. Extremities are warm and well perfused. Capillary refill is less than 2 seconds. Peripheral pulses intact. LUNGS: Clear to auscultation without rales, rhonchi, wheezing or diminished breath sounds. ABDOMEN: Positive bowel sounds. Soft, nondistended, nontender. No guarding or rebound. No masses or hepatosplenomegally. MUSKULOSKELETAL: ROM intact to all extremities. No joint erythema or tenderness. Normal muscular development. Normal gait. SKIN: Patchy, erythematous maculopapular rash to the left anterior and posterior forearm from wrist to elbow. Skin exam otherwise unremarkable. Triage Information Reviewed: Yes Vital Signs: Initial Vital Signs Temp 98.6 F 05/14/19 09:53 Pulse 68 05/14/19 09:53 Resp 18 05/14/19 09:53 BP 115/79 05/14/19 09:53 Pulse Ox 99 05/14/19 09:53 Vital Signs Reviewed: Yes Course/Dx - Course Course Of Treatment: 59-year-old female presents with one-week history of red itchy rash to her left forearm for the past week. States she has been using [id number]-dvmcmsb topical anti-itch gel without relief. States itching is worse at night. Denies swelling of lips, tongue, throat, difficulty breathing, changes in diet, detergents, soaps, lotions, cosmetics, or known contact with environmental irritants. Afebrile. Vital signs stable. Patient had patchy, erythematous maculopapular rash to the left anterior and posterior forearm from wrist to elbow. Remainder of exam was unremarkable. Patient has a reported allergy to diphenhydramine therefore we'll treat with clobetasol cream twice a day for up to 2 weeks. Patient is to follow-up with her primary care provider in 3-5 days if symptoms are not improving. Anticipatory guidance and warning symptoms were reviewed with the patient. Verbalizes understanding and agrees plan of care. - Differential Diagnoses - Skin Complaint Differential Diagnoses: Allergic Reaction, Contact Dermatitis, Drug Rash, Local Allergic Reaction, Poison Jeannette, Poison [place], Scabies, Viral Exanthem - Diagnoses Provider Diagnosis: Contact dermatitis Discharge - Sign-Out/Discharge Documenting (check all that apply): Patient Departure All imaging exams completed and their final reports reviewed: No Studies - Discharge Plan Condition: Stable Disposition: HOME Prescriptions: Clobetasol Propionate/Emoll [Clobetasol Emollient 0.05% Crm] 30 gm TP BID #1 tube Patient Education Materials: Contact Dermatitis (ED) Referrals: Merced Brown PA [Primary Care Provider] - 3 Days Additional Instructions: Use clobetasol cream. Apply a thin layer to the affected area twice a day. Follow up with your primary care provider in 3-5 days if no improvement in symptoms. Seek immediate medical attention in the emergency room if you have swelling of the lips, tongue, or throat, difficulty breathing, or any worsening of symptoms. - Billing Disposition and Condition Condition: STABLE Disposition: Home - Attestation Statements Provider Attestation: I was available for consult. This patient was seen by the [facility]. The patient was not presented to , seen by or examined by ny -Bri Escobedo MD
== END 2019-05-14 10:34 | disposition home or self-care (01) ==
LOC: UCCORT 09:35
DX: L25.9 Unspecified contact dermatitis, unspecified cause (principal)
CPT/HCPCS: 99212; G0463

== ENCOUNTER 2019-06-19 13:45 | Emergency (ER) | payer OTHER ==
[2019-06-19 14:19] VITALS: BP 116/79
--- NOTE | 2019-06-19 14:53 | UC ---
UC General HPI - HPI Summary HPI Summary: Pt presents with c/ o "on again, off again" diarrhea that began two weeks ago Pt reports that she was seen by her PCP who told her to change diet to bland and take pepto pismol as needed. Pt staes she has had little to know improvement. - History of Current Complaint Chief Complaint: UCGI Stated Complaint: WEAK DIARRHEA Time Seen by Provider: 06/19/19 14:28 Hx Obtained From: Patient Hx Last Menstrual Period: NOVASURE Onset/Duration: Sudden Onset, Lasting Weeks Timing: Intermittent Episodes Lasting: Onset Severity: Moderate Current Severity: Mild Pain Intensity: 0 Associated Signs & Symptoms: Positive: Diarrhea - Allergy/Home Medications Allergies/Adverse Reactions: Allergies Allergy/AdvReac Type Severity Reaction Status Date / Time Penicillins Allergy Unknown rash,hives Verified 06/19/19 14:19 pseudoephedrine Allergy Unknown Unknown Verified 06/19/19 14:19 [From Sudafed] Reaction Details bee venom protein (honey bee) AdvReac Unknown Anxiety Verified 06/19/19 14:19 diphenhydramine AdvReac Tachycardia Verified 06/19/19 14:19 [From Benadryl Allergy] PMH/Surg Hx/FS Hx/Imm Hx Previously Healthy: Yes Cardiovascular History: Cardiac Disease GI/ History: Other - intermittent diarrhea - Surgical History Surgical History: Yes Surgery Procedure, Year, and Place: Craneotomy at ,Right eye tumor at ,Tubal ligation,Right ankle surgery with hardware, D&C and Novasure. hysterectomy - Family History Known Family History: Positive: Hypertension - Social History Occupation: Works From/At Home Lives: With Family Alcohol Use: None Substance Use Type: None Smoking Status (MU): Never Smoked Tobacco Have You Smoked in the Last Year: No - Immunization History Most Recent Influenza Vaccination: 06/2015 Review of Systems All Other Systems Reviewed And Are Negative: Yes Constitutional: Positive: Fatigue Skin: Positive: Negative Eyes: Positive: Negative ENT: Positive: Negative Respiratory: Positive: Negative Cardiovascular: Positive: Negative Gastrointestinal: Positive: Diarrhea Genitourinary: Positive: Negative Motor: Positive: Negative Neurovascular: Positive: Negative Musculoskeletal: Positive: Negative Neurological: Positive: Negative Psychological: Positive: Negative Is Patient Immunocompromised?: No Physical Exam Triage Information Reviewed: Yes Appearance: Well-Appearing Vital Signs: Initial Vital Signs Temp 97.5 F 06/19/19 14:14 Pulse 79 09/08/19 14:14 Resp 16 06/19/19 14:14 BP 116/79 06/19/19 14:14 Pulse Ox 100 06/19/19 14:14 Vital Signs Reviewed: Yes Eye Exam: Normal ENT Exam: Normal Dental Exam: Normal Neck exam: Normal Respiratory Exam: Normal Cardiovascular Exam: Normal Abdominal Exam: Normal Abdomen Description: Positive: Nontender Musculoskeletal Exam: Normal Neurological Exam: Normal Psychological Exam: Normal Skin Exam: Normal Course/Dx - Differential Dx - Multi-Symptom Differential Diagnoses: Other - IBS, diarrhea - Diagnoses Provider Diagnosis: Diarrhea Discharge ED - Sign-Out/Discharge Documenting (check all that apply): Patient Departure All imaging exams completed and their final reports reviewed: No Studies - Discharge Plan Condition: Stable Disposition: HOME Prescriptions: Loperamide CAP* [Imodium CAP*] 2 mg PO Q4H PRN #24 cap PRN Reason: Diarrhea Patient Education Materials: Loperamide (By mouth), Acute Diarrhea (ED) Referrals: Merced Brown PA [Primary Care Provider] - As Soon As Possible - Billing Disposition and Condition Condition: STABLE Disposition: Home
== END 2019-06-19 14:56 | disposition home or self-care (01) ==
LOC: UCCORT 13:45
DX: R19.7 Diarrhea, unspecified (principal); R53.83 Other fatigue; Z88.0 Allergy status to penicillin; Z88.8 Allergy status to other drugs, medicaments and biological substances; Z91.030 Bee allergy status
CPT/HCPCS: 99212; G0463